=== PATIENT | female | born 1945 | race Caucasian/White ===

== ENCOUNTER → 2016-12-14 | Outpatient (CLI) | payer MEDICARE ==
[~2016-12-14] MED LIST: ASPIRIN EC325 MG PO; COZAAR50 MG PO; ELAVIL 25 MG TA25 MG PO; LIPITOR TAB 2020 MG PO; LOPRESSOR50 MG PO; SYNTHROID100 MCG PO
== END ==
LOC: HEART 5 12-01 08:15
DX: I20.9 Angina pectoris, unspecified (principal)
CPT/HCPCS: 78452; A9502